=== PATIENT | female | born 1975 | race Caucasian/White ===

== ENCOUNTER → 2017-10-09 | Outpatient (CLI) | payer BC ==
[~2017-10-09] MED LIST: ASPI325T4 PO; IBUP-1050 PO
[2017-10-09 17:10] LABS: BLOOD UREA NITROGEN 11 mg/dl (7-18); CALCIUM 8.7 mg/dl (8.5-10.1); CARBON DIOXIDE 24 mmol/L (21-32); CHOLESTEROL 168 mg/dl (0-200); CREATININE 0.83 mg/dl (0.60-1.20); GLUCOSE 81 mg/dl (70-99); LDL CHOLESTEROL CALCULATED 95 mg/dl; POTASSIUM 3.9 mmol/L (3.5-5.1); SODIUM 137 mmol/L (136-145)
== END | disposition home or self-care (01) ==
LOC: C.LABPBG 14:53
PROVIDERS: ATTEND Family Medicine
DX: Z00.00 Encounter for general adult medical examination without abnormal findings (principal); Z13.220 Encounter for screening for lipoid disorders